=== PATIENT | female | born 1945 | race Caucasian/White ===

== ENCOUNTER → 2017-06-28 | Outpatient (CLI) | payer MEDICARE ==
[~2017-06-28] MED LIST: ACTONEL150 MG PO; AMILORIDE HCL/H1 TAB PO; BENAZEPRIL20 MG PO; CALCIUM 6001 TA1 PO; CEPHALEXIN500 M1; FERROUS SU325 MG/TAB PO; FOLIC ACID 40400 MCG PO; GLUCOPHAGE1000 MG PO; MICRO-K 1010 MEQ PO; PANTOPRAZOLE40 MG PO; VITAMIN C BUFF500 MG PO; ZOCOR 40MG40 MG PO
== END ==
LOC: MC.RAD 09:18
DX: Z12.31 Encounter for screening mammogram for malignant neoplasm of breast (principal)

== ENCOUNTER → 2018-06-13 | Outpatient (CLI) | payer MEDICARE, OTHER | LOC: MC.RAD 17:06 | DX: Z12.31 Encounter for screening mammogram for malignant neoplasm of breast (principal); E78.5 Hyperlipidemia, unspecified ==

== ENCOUNTER → 2018-06-13 | Outpatient (CLI) | payer MEDICARE, OTHER | LOC: SUN.DIA 10:25 | DX: E11.9 Type 2 diabetes mellitus without complications (principal) | CPT/HCPCS: G0108 ==

== ENCOUNTER → 2018-07-04 | Outpatient (CLI) | payer OTHER, MEDICARE | LOC: MC.RAD 11:14 | DX: Z12.31 Encounter for screening mammogram for malignant neoplasm of breast (principal); E78.5 Hyperlipidemia, unspecified ==

== ENCOUNTER → 2019-07-20 | Outpatient (CLI) | payer MEDICARE, OTHER | LOC: MC.RAD 10:15 | DX: Z12.31 Encounter for screening mammogram for malignant neoplasm of breast (principal) ==

== ENCOUNTER → 2020-07-21 | Outpatient (CLI) | payer MEDICARE, OTHER | LOC: MC.RAD 09:57 | DX: Z12.31 Encounter for screening mammogram for malignant neoplasm of breast (principal) ==

== ENCOUNTER 2021-10-05 13:09 | Outpatient (CLI) | payer MEDICARE ==
[2005-08-26 17:02] VITALS: BP 182/98
[~2021-10-05] VITALS: Ht 152.4 cm; Wt 71.2 kg
[2021-10-05] MEDS ORDERED: SYNJARDY XR 5-1 EACH PO (13:55)
[2021-10-05 13:59] VITALS: BP 126/77; PULSE 76; TEMP 98.4
== END 2021-10-05 13:59 ==
LOC: EUO 13:09
DX: M81.0 Age-related osteoporosis without current pathological fracture (principal)
CPT/HCPCS: J0897

== ENCOUNTER 2022-04-06 14:55 | Outpatient (CLI) | payer MEDICARE ==
[2005-08-26 17:02] VITALS: BP 182/98
[~2022-04-06 14:55] MED LIST changes: +SYNJARDY XR 5-1 EACH PO
[2022-04-06 15:25] VITALS: BP 128/75; PULSE 77; TEMP 98.5
[2022-04-06] MEDS ORDERED: NORVASC 5MG5 MG/TAB PO (15:27)
[2022-04-06] MEDS ORDERED: ZOCOR 20MG20 MG PO (15:28)
[2022-04-06] MEDS ORDERED: PROTONIX 40MG T40 MG PO (15:29)
[2022-04-06] MEDS ORDERED: LOTENSIN20 MG PO (15:29)
[2022-04-06] MEDS ORDERED: AMILORIDE/HCTZ1 TAB PO (15:30)
== END 2022-04-06 16:58 | disposition home or self-care (01) ==
LOC: EUO 14:55
DX: M81.0 Age-related osteoporosis without current pathological fracture (principal)
CPT/HCPCS: J0897

== ENCOUNTER 2022-10-07 12:43 | Outpatient (CLI) | payer MEDICARE ==
[2005-08-26 17:02] VITALS: BP 182/98
[~2022-10-07 12:43] MED LIST changes: +AMILORIDE/HCTZ1 TAB PO; +LOTENSIN20 MG PO; +NORVASC 5MG5 MG/TAB PO; +PROTONIX 40MG T40 MG PO; +ZOCOR 20MG20 MG PO
[2022-10-07 13:19] VITALS: BP 150/74; PULSE 84; TEMP 98.2
== END 2022-10-07 16:51 | disposition home or self-care (01) ==
LOC: EUO 12:43
DX: Z79.899 Other long term (current) drug therapy (principal)
CPT/HCPCS: J0897

== ENCOUNTER 2023-11-24 14:59 | Outpatient (CLI) | payer MEDICARE ==
[2005-08-26 17:02] VITALS: BP 182/98
[~2023-11-24] VITALS: Ht 152.4 cm; Wt 65.8 kg
[~2023-11-24 14:59] MED LIST changes: +GLUCOTROL XL5 MG/TAB PO
[2023-11-24] MEDS ORDERED: Denosumab 60 MG/ML SYRINGE SQ ONE (15:15)
[2023-11-24 15:20] VITALS: BP 137/82; PULSE 88; TEMP 97.9
[2023-11-24] MEDS ORDERED: OZEMPIC0.25 MG/02 SQ (15:33)
== END 2023-11-24 15:38 ==
LOC: EUO 14:59
DX: M81.0 Age-related osteoporosis without current pathological fracture (principal)
CPT/HCPCS: J0897